=== PATIENT | male | born 1940 | race Hispanic/Latino ===

== ENCOUNTER 2017-06-19 09:33 | Outpatient (CLI) | payer MEDICARE, OTHER ==
--- NOTE | 2017-06-19 16:12 | XRay Report ---
XRAY LEFT KNEE 4 THREE VIEWS: 06/19/17 CLINICAL: Left knee pain. FINDINGS: Moderate osteopenia. Status post total joint replacement. A submillimeter gap between the metaphyseal bone and prosthesis is identified at the anterior superior aspect of the femoral prosthesis on the lateral view. The prostheses are otherwise normal. No joint effusion.Normal soft tissues. IMPRESSION: Small anterior superior gap between the metaphyseal bone and the femoral prosthesis.
--- NOTE | 2017-06-19 16:52 | XRay Report ---
XRAY RIGHT ANKLE THREE VIEWS: 06/19/17 09:33:00 CLINICAL: Right ankle pain. No comparison. FINDINGS: The ankle mortise is intact.Status post ORIF distal tibial fracture with no fracture lines identified. No other fracture. Moderate soft tissue swelling, medial greater than lateral. No soft tissue air or foreign body. IMPRESSION: Status post ORIF distal tibial fracture with apparent healing of the fracture. Moderate soft tissue swelling.
== END 2017-06-19 09:34 | disposition home or self-care (01) ==
LOC: SPVIMAG 09:33
PROVIDERS: ATTEND Orthopaedic Surgery Sports Medicine
DX: M85.862 Other specified disorders of bone density and structure, left lower leg (principal); S82.301D Unspecified fracture of lower end of right tibia, subsequent encounter for closed fracture with routine healing; M25.571 Pain in right ankle and joints of right foot; Z96.652 Presence of left artificial knee joint; X58.XXXD Exposure to other specified factors, subsequent encounter